=== PATIENT | male | born 1975 | race Caucasian/White ===

== ENCOUNTER 2016-05-02 19:44 | Emergency (ER) | payer SELFPAY ==
[~2016-05-02] VITALS: Ht 182.9 cm; Wt 84.1 kg
[~2016-05-02 19:44] MED LIST: AMOXICILLIN 50500 MG PO; NO HOME MEDICATIONS; NORCO 325 MG-51 TAB PO
[2016-05-02 19:47] VITALS: BP 139/90; TEMP 98.3
[2016-05-02] MEDS ORDERED: BACTRIM DS 8001 TAB PO (20:21)
[2016-05-02] MEDS ORDERED: NORCO 325 MG-7.1 TAB PO (20:21)
[2016-05-02 20:50] VITALS: PULSE 72
== END 2016-05-02 20:51 | disposition home or self-care (01) ==
LOC: COL.ER 19:44
DX: L02.31 Cutaneous abscess of buttock (principal)

== ENCOUNTER 2019-02-26 22:13 | Emergency (ER) | payer SELFPAY ==
[~2019-02-26] VITALS: Ht 182.9 cm; Wt 77.3 kg
[~2019-02-26 22:13] MED LIST changes: +BACTRIM DS 8001 TAB PO; +NORCO 325 MG-7.1 TAB PO
[2019-02-26 22:16] VITALS: TEMP 98.3
[2019-02-26 22:38] LABS: BASO % 0.2 % (0.0-2.0); GRAN # 10.2 (1.4-6.5); HEMATOCRIT 49.5 % (42.0-52.0); HEMOGLOBIN 17.1 g/dl (13.5-18.0); LYMPH # 2.1 (1.2-3.4); LYMPH % 15.8 % (20.0-51.0); MEAN CELL VOLUME 88 fl (80.0-100.0); MEAN CORPUSCULAR HEMOGLOBIN 31 pg (27.0-31.0); MEAN CORPUSCULAR HGB CONC 35 g/dl (33.0-37.0); MEAN PLATELET VOLUME 9.4 fl (7.4-10.4); MONO # 0.8 (0.1-0.6); MONO % 5.8 % (1.7-9.3); PLATELET COUNT 266 K/mm3 (130-400); REDCELL DISTRIBUTION WIDTH-CV 13.6 % (11.5-14.5)
[2019-02-26 22:54] LABS: PHOSPHOROUS 4.5 mg/dL (2.5-4.5)
[2019-02-26 23:26] LABS: C-REACTIVE PROTEIN 0.7 mg/dL (0.0-0.9)
[2019-02-26 23:45] LABS: ALBUMIN 5.3 gm/dL (3.5-5.0); BILIRUBIN,TOTAL 1.3 mg/dL (0.0-1.0); CALCIUM 10.1 mg/dL (8.4-10.2); CREATININE, serum 1.15 (0.66-1.25); POTASSIUM 3.8 mmol/L (3.4-5.0); TOTAL PROTEIN 8.8 gm/dL (6.4-8.2)
[2019-02-27 00:05] LABS: COLLECTION METHOD CLEAN CATCH
[2019-02-27 00:13] LABS: PH 5 (5-8); SQUAMOUS EPITHELIAL 0-2 /hpf; URINE APPEARANCE Clear; URINE BACTERIA None Seen /hpf; URINE BILIRUBIN Negative (NEGATIVE); URINE BLOOD 1+ (NEGATIVE); URINE COLOR Yellow; URINE GLUCOSE Negative (NEGATIVE); URINE KETONE 2+ (NEGATIVE); URINE LEUKOCYTE ESTERASE Negative (NEGATIVE); URINE NITRATE Negative (NEGATIVE); URINE PROTEIN(semi-quant) 1+ (NEGATIVE); URINE RBC 0-2 /hpf; URINE UROBILINOGEN Negative (NEGATIVE)
[2019-02-27 00:46] VITALS: BP 135/72; PULSE 84
== END 2019-02-27 00:37 | disposition home or self-care (01) ==
LOC: COL.ER 22:13
PROVIDERS: Emergency Medicine
DX: R11.10 Vomiting, unspecified (principal); F17.210 Nicotine dependence, cigarettes, uncomplicated
CPT/HCPCS: J2405; J7030

== ENCOUNTER 2019-03-23 15:44 | Emergency (ER) | payer SELFPAY ==
[~2019-03-23] VITALS: Ht 182.9 cm; Wt 75.0 kg
[2019-03-23 16:00] VITALS: BP 138/77; PULSE 79; TEMP 98.2
== END 2019-03-23 17:00 | disposition home or self-care (01) ==
LOC: COL.ER 15:44
DX: S56.811A Strain of other muscles, fascia and tendons at forearm level, right arm, initial encounter (principal); F17.210 Nicotine dependence, cigarettes, uncomplicated; X50.1XXA Overexertion from prolonged static or awkward postures, initial encounter; Y93.H1 Activity, digging, shoveling and raking; Y99.0 Civilian activity done for income or pay

== ENCOUNTER 2019-04-08 14:14 | Outpatient (RCR) | payer OTHER | END 2019-06-23 | disposition home or self-care (01) | LOC: WSOH | DX: S53.411A Radiohumeral (joint) sprain of right elbow, initial encounter (principal); Z90.89 Acquired absence of other organs; Z98.890 Other specified postprocedural states; F17.210 Nicotine dependence, cigarettes, uncomplicated; Y99.0 Civilian activity done for income or pay ==

== ENCOUNTER 2019-08-28 22:59 | Emergency (ER) | payer SELFPAY ==
[~2019-08-28] VITALS: Ht 182.9 cm; Wt 77.3 kg
[2019-08-28 23:13] VITALS: TEMP 97.3
[2019-08-29 00:02] LABS: BASO % 0.3 % (0.0-2.0); EOS % 0.1 % (0-4.0); GRAN # 7.7 (1.4-6.5); HEMATOCRIT 50.5 % (42.0-52.0); HEMOGLOBIN 17.5 g/dl (13.5-18.0); LYMPH # 1.7 (1.2-3.4); LYMPH % 16.9 % (20.0-51.0); MEAN CELL VOLUME 88 fl (80.0-100.0); MEAN CORPUSCULAR HEMOGLOBIN 31 pg (27.0-31.0); MEAN CORPUSCULAR HGB CONC 35 g/dl (33.0-37.0); MEAN PLATELET VOLUME 8.9 fl (7.4-10.4); MONO # 0.8 (0.1-0.6); MONO % 7.3 % (1.7-9.3); PLATELET COUNT 250 K/mm3 (130-400); RED BLOOD COUNT 5.72 M/mm3 (4.20-5.60); REDCELL DISTRIBUTION WIDTH-CV 13.3 % (11.5-14.5)
[2019-08-29 00:16] LABS: ALBUMIN 5.1 gm/dL (3.5-5.0); BILIRUBIN,TOTAL 1.3 mg/dL (0.0-1.0); C-REACTIVE PROTEIN 0.9 mg/dL (0.0-0.9); CALCIUM 10.6 mg/dL (8.4-10.2); CREATININE, serum 0.94 (0.66-1.25); TOTAL PROTEIN 9.2 gm/dL (6.4-8.2)
[2019-08-29 02:26] VITALS: BP 138/75; PULSE 86
== END 2019-08-29 02:30 | disposition home or self-care (01) ==
LOC: COL.ER 22:59
PROVIDERS: Physician Assistant
DX: R11.10 Vomiting, unspecified (principal); E86.0 Dehydration; F17.210 Nicotine dependence, cigarettes, uncomplicated
CPT/HCPCS: C9113; J2405; J2765; J7030

== ENCOUNTER 2020-06-20 12:28 | Emergency (ER) | payer SELFPAY ==
[~2020-06-20] VITALS: Ht 182.9 cm; Wt 79.5 kg
[2020-06-20 12:34] VITALS: TEMP 97.9
[2020-06-20 13:20] LABS: HEMATOCRIT 46.7 % (42.0-52.0); HEMOGLOBIN 15.9 g/dl (13.5-18.0); MEAN CELL VOLUME 87 fl (80.0-100.0); MEAN CORPUSCULAR HEMOGLOBIN 30 pg (27.0-31.0); MEAN CORPUSCULAR HGB CONC 34 g/dl (33.0-37.0); MEAN PLATELET VOLUME 9.7 fl (7.4-10.4); PLATELET COUNT 252 K/mm3 (130-400); RED BLOOD COUNT 5.37 M/mm3 (4.20-5.60); REDCELL DISTRIBUTION WIDTH-CV 13.5 % (11.5-14.5)
[2020-06-20 13:50] LABS: BAND 7 % (0-10); LYMPHOCYTE 40 % (20.0-51.0); NEUTROPHILS 44 % (42.0-75.2); PLATELET ESTIMATE NORMAL (NORMAL)
[2020-06-20] MEDS ORDERED: PERCOCET 325 MG1 TA2 PO (14:17)
[2020-06-20] MEDS ORDERED: MOTRIN 800800 MG/TAB PO (14:17)
[2020-06-20 14:21] LABS: URIC ACID 4.2 mg/dL (3.5-8.5)
[2020-06-20 14:22] LABS: C-REACTIVE PROTEIN < 0.5 mg/dL (0.0-0.9)
[2020-06-20 14:50] VITALS: BP 135/98; PULSE 71
[2020-06-21 09:06] LABS: PATHOLOGY DIFF REVIEW OK
== END 2020-06-20 14:50 | disposition home or self-care (01) ==
LOC: COL.ER 12:28
PROVIDERS: Emergency Medicine
DX: M65.842 Other synovitis and tenosynovitis, left hand (principal)
CPT/HCPCS: J1885

== ENCOUNTER → 2021-06-14 | Outpatient (CLI) | payer OTHER ==
[~2021-06-14] MED LIST changes: +MOTRIN 800800 MG/TAB PO; +PERCOCET 325 MG1 TA2 PO
== END ==
LOC: ZCOL.LAB 16:00
DX: L05.01 Pilonidal cyst with abscess (principal)

== ENCOUNTER 2021-07-25 09:48 | Emergency (ER) | payer OTHER ==
[~2021-07-25] VITALS: Ht 182.9 cm; Wt 79.5 kg
[2021-07-25 10:02] VITALS: TEMP 98.7
[2021-07-25 11:04] VITALS: BP 130/87
[2021-07-25] MEDS ORDERED: NORCO 325 MG-51 TAB PO (12:01)
[2021-07-25] MEDS ORDERED: MOTRIN 600600 MG/TAB PO (12:01)
[2021-07-25 12:13] VITALS: PULSE 67
== END 2021-07-25 12:13 | disposition home or self-care (01) ==
LOC: COL.ER 09:48
DX: S93.402A Sprain of unspecified ligament of left ankle, initial encounter (principal); S80.12XA Contusion of left lower leg, initial encounter; S70.02XA Contusion of left hip, initial encounter; S70.312A Abrasion, left thigh, initial encounter; Z28.310 Unvaccinated for COVID-19; Z87.891 Personal history of nicotine dependence; V27.4XXA Motorcycle driver injured in collision with fixed or stationary object in traffic accident, initial encounter; Y92.410 Unspecified street and highway as the place of occurrence of the external cause

== ENCOUNTER 2021-08-24 19:58 | Emergency (ER) | payer OTHER ==
[~2021-08-24] VITALS: Ht 182.9 cm; Wt 79.1 kg
[~2021-08-24 19:58] MED LIST changes: +MOTRIN 600600 MG/TAB PO
[2021-08-24 20:09] VITALS: PULSE 69; TEMP 98.7
[2021-08-24] MEDS ORDERED: MOBIC15 MG PO (20:23)
[2021-08-24 21:57] VITALS: BP 148/100
[2021-08-24] MEDS ORDERED: PERCOCET 325 MG1 TA2 PO (22:01)
== END 2021-08-24 22:16 | disposition home or self-care (01) ==
LOC: COL.ER 19:58
DX: T23.252A Burn of second degree of left palm, initial encounter (principal); T23.271A Burn of second degree of right wrist, initial encounter; T24.112A Burn of first degree of left thigh, initial encounter; T31.0 Burns involving less than 10% of body surface; Z87.891 Personal history of nicotine dependence; Z88.6 Allergy status to analgesic agent; Z28.310 Unvaccinated for COVID-19; X15.8XXA Contact with other hot household appliances, initial encounter
CPT/HCPCS: J1170; J3010

== ENCOUNTER 2021-08-27 12:33 | Emergency (ER) | payer OTHER ==
[~2021-08-27] VITALS: Ht 182.9 cm; Wt 79.5 kg
[~2021-08-27 12:33] MED LIST changes: +MOBIC15 MG PO
[2021-08-27] MEDS ORDERED: AMOXICILLIN 50500 MG PO (14:15)
[2021-08-27] MEDS ORDERED: NORCO 325 MG-51 TAB PO (14:15)
[2021-08-27 14:35] VITALS: BP 159/72; PULSE 73; TEMP 98.4
== END 2021-08-27 14:36 | disposition home or self-care (01) ==
LOC: COL.ER 12:33
DX: K02.9 Dental caries, unspecified (principal); Z28.310 Unvaccinated for COVID-19